=== PATIENT | female | born 1980 | race Hispanic/Latino ===

== ENCOUNTER 2021-07-05 09:30 | Emergency (ER) | payer SELFPAY ==
[~2021-07-05] VITALS: Ht 162.6 cm; Wt 113.4 kg
[2021-07-05] MEDS ORDERED: IBUPROFEN600 MG PO (10:49)
== END 2021-07-05 11:30 | disposition home or self-care (01) ==
LOC: FSED 09:39
DX: J10.1 Influenza due to other identified influenza virus with other respiratory manifestations (principal)
CPT/HCPCS: 83518; 87400; 87420; 99282